=== PATIENT | female | born 1965 | race Caucasian/White ===

== ENCOUNTER 2018-11-16 13:09 | Observation (INO) ==
[2018-11-16] MEDS ORDERED: 0.9 % Sodium Chloride 1,000 ML IVC ONE (13:59)
[2018-11-16] MEDS ORDERED: Isovue-370 500 ML BOTTLE IVP ONE (13:59)
--- NOTE | 2018-11-16 14:02 | Emergency Department Note ---
Disposition Clinical Impression: Hypoxia Pneumonia Qualifiers: Pneumonia type: due to unspecified organism Laterality: bilateral Lung location: lower lobe of lung Qualified Code(s): J18.1 - Lobar pneumonia, unspecified organism Disposition: Admitted As Inpatient Condition: Fair Referrals: Ivana Lyon CNP [Primary Care Provider] - Forms: ED Satisfaction Letter Time of Disposition: 15:53 SOB HPI - General Chief Complaint: ED General Medical Stated Complaint: POSSIBLE INFECTION Time Seen by Provider: 11/16/18 13:50 Source: patient Mode of arrival: private vehicle Limitations: no limitations Nursing Notes Reviewed: Yes Vital Signs Reviewed: Yes - History of Present Illness Pt Subjective Complaint: shortness of breath, cough Onset (ago): week(s) (2 weeks) Context: recent illness (Recently had some ear infection issues and took antibiotics. Initially took amoxicillin and then took Keflex. Completed the Keflex a week and a half ago.) Severity: moderate Consistency/Duration: constant Improves with: nothing Worsens with: exertion, coughing Associated symptoms: Reports: fever, cough, wheezing. Denies: chest pain, sputum production Treatment prior to arrival: other (Saw her PCP in the office. Was sent over to evaluate for possible pneumonia) Cough present: Yes Cough Description: Non-Productive Cough Frequency: Intermittent Sputum production: No - Related Data Home oxygen amount: none Home Medications Medication Instructions Recorded Confirmed Gabapentin [Neurontin] 1,200 mg PO TID 12/05/14 11/16/18 Levothyroxine [Synthroid] 300 mcg PO QAM 12/05/14 11/16/18 Omeprazole [PriLOSEC] 40 mg PO QAM 12/05/14 11/16/18 Aspirin [Ecotrin] 325 mg PO DAILY 09/14/18 11/16/18 Furosemide [Lasix] 40 mg PO DAILY 09/14/18 11/16/18 Spironolactone [Aldactone] 50 mg PO DAILY 09/14/18 11/16/18 Baclofen 20 mg PO Q8H 11/16/18 11/16/18 Oxycodone HCl [Oxycodone HCl ER] 30 mg PO Q4H 11/16/18 11/16/18 Previous Rx's Medication Instructions Recorded Albuterol Neb [Proventil Neb] 2.5 mg IH Q4HR #30 vial.neb 05/24/15 Allergies Allergy/AdvReac Type Severity Reaction Status Date / Time ibuprofen [From Motrin] AdvReac Vomiting Verified 09/14/18 22:43 naproxen [From Naprosyn] AdvReac Vomiting Verified 09/14/18 22:43 tramadol AdvReac Vomiting Verified 09/14/18 22:43 All systems ED: reviewed and negative except as stated. Constitutional: Reports: fever, chills ENT ED: Reports: throat pain, congestion. Denies: ear pain Cardiovascular: Reports: dyspnea on exertion. Denies: chest pain, palpitations Respiratory: Reports: cough, dyspnea, wheezes Gastrointestinal: Denies: abdominal pain, vomiting, diarrhea Neurological: Denies: headache Endocrine: Reports: fatigue Past Medical History - Past Medical History Attestation: Yes The following information was validated with the patient. Source: patient, old records reviewed, nursing notes reviewed Medical history: Reports: arthritis, cancer, CHF, COPD, GI bleed, hepatitis, hyperlipidemia, hypertension, thyroid disease, other Surgical history: Reports: appendectomy, cholecystectomy, hysterectomy, orthopedic, other (Carpal tunnel release, right breast lumpectomy, cardiac janeen terization, cervical spine osteomyelitis), thyroidectomy, other (Breast biopsy, cardiac catheterization at [facility] in approximately 2010 with normal coronaries) Psychiatric history: Reports: anxiety, depression VIDEOTAPE RECORDING ENGINEER history: Reports: no VIDEOTAPE RECORDING ENGINEER history - Social History Smoking Status: Current every day smoker Smokeless Tobacco Status: No Alcohol use: Reports: none Drug use: 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 Absent: scleral icterus, conjunctival injection - ENT ENT exam: normal exam, normal oropharynx, mucous membranes dry, TM's normal bilaterally, normal external ear exam - Neck Neck exam: Present: normal inspection, trachea midline. Absent: meningismus - Chest Chest inspection: Present: normal inspection, symmetric chest wall rise. Absent: tenderness - Respiratory Respiratory exam: Present: other (Course inspiratory sound and expiratory wheezes located in the base posteriorly on the right rest of the lung ernst were clear). Absent: respiratory distress - Cardiovascular Cardiovascular exam: Present: regular rate, normal rhythm, normal heart sounds - Abdominal Exam Abdominal exam: Present: soft, Non-Tender, normal bowel sounds - Extremities Exam Extremities exam: Absent: tenderness, pedal edema, calf tenderness - Neurological Exam Neurological exam: Present: alert, oriented X3, other (Generalized lower extremity weakness but was able to bear weight and help with transfer from chair to gurney) - Psychiatric Psychiatric exam: Present: normal affect, normal mood - Skin Skin exam: Present: warm, dry, other (Minor skin breakdown to the left buttock but no signs of infection or cellulitis) Course Course Narrative: Patient sent over to evaluate for cough and shortness of breath and reports of fever. I hear focal sounds in the right base. Patient has some mobility issues which increase her risk for pneumonia but also increase her risk for PE. Given that she was recently on a couple rounds of antibiotics I think strong consideration needs to be made for other causes like PE. I am going to do a workup on the patient but I am going to proceed directly to CTA of the chest which we will allow me to evaluate for pneumonia as well as PE. Disposition will be based on diagnostic results and reevaluation. - Reevaluation(s) Reevaluation #1: CT of the chest does not reveal any evidence of pulmonary embolism but there is evidence of pneumonitis versus atypical pneumonia. Patient has a low O2 sats at rest even after breathing treatments. She needs to be admitted to the hospital for IV antibiotics and oxygen therapy. He was not sure what she wanted to initially but after a shared decision-making discussion she then did agree to be admitted to the hospital. I bar he spoke with the hospitalist and we will arrange the admission. Time: 15:52 - Consultations Consultation #1: Dr. Mercado, [facility] - I discussed the case with the hospitalist. He is accepting the patient for admission. Time: 15:50 Vital Signs Temperature 98.4 F 11/16/18 13:14 Pulse Rate 96 11/16/18 13:14 Respiratory Rate 18 11/16/18 13:14 Blood Pressure 131/84 11/16/18 13:14 O2 Sat by Pulse Oximetry 87 11/16/18 13:14 Temperature 98.4 F 11/16/18 13:14 Pulse Rate 93 11/16/18 15:32 Respiratory Rate 16 11/16/18 15:32 Blood Pressure 116/66 11/16/18 15:32 O2 Sat by Pulse Oximetry 90 11/16/18 15:32 Oxygen Delivery Oxygen Delivery Room Air Shortness of Breath/Dyspnea - Medical Records Medical records reviewed: Yes I reviewed the patient's medical records. - Lab Data Lab results reviewed: Yes I reviewed the patient's lab results. Result diagrams: 11/16/18 14:14 11/16/18 14:14 Lab Results 11/16/18 11/16/18 11/16/18 Range/Units 14:14 14:14 14:14 WBC 7.8 (4.3-11.1) K/mcL RBC 4.80 (3.82-4.97) M/mcL Hgb 14.4 (11.5-15.4) g/dL Hct 44.2 (35.3-44.9) % MCV 92.1 (83.0-100.0) fL MCH 30.0 (28.0-33.3) pg MCHC 32.6 (31.6-35.5) g/dL RDW 15.8 H (11.5-14.5) % Plt Count 325 (140-400) K/mcL MPV 11.4 (9.4-12.4) fL Immature Gran % 0.1 (0-4) % Seg Neutrophils % 58.1 % Lymphocytes % 32.3 % Monocytes % 6.3 % Eosinophils % 2.8 % Basophils % 0.4 % Neutrophils # 4.5 (1.6-8.9) K/mcL Lymphocytes # 2.5 (0.6-4.6) K/mcL Monocytes # 0.5 (0.0-1.3) K/mcL Eosinophils # 0.2 (0.0-0.6) K/mcL Basophils # 0.0 (0.0-0.2) K/mcL Sodium 138 (136-145) mEq/L Potassium 3.8 (3.5-5.1) mEq/L Chloride 100 (98-107) mEq/L Carbon Dioxide 32 H (23-29) mEq/L BUN 6 (6-20) mg/dL Creatinine 0.83 (0.60-1.20) mg/dL Est GFR ( Amer) > 60 (> 60) Est GFR (Non-Af Amer) > 60 (> 60) BUN/Creatinine Ratio 7 (6-26) Glucose 100 (70-105) mg/dL Calculated Osmolality 284 (280-300) Lactic Acid 1.2 (0.5-2.2) mmol/L Calcium 8.8 (8.6-10.3) mg/dL Troponin I (< 0.04) ng/mL Urine Color (Yellow) Urine Clarity (Clear) Urine pH (5.0-8.0) pH Units Ur Specific [place] (1.010-1.025) Urine Protein (Neg-Trace) mg/dL Urine Glucose (UA) (Normal) mg/dL Urine Ketones (Negative) mg/dL Urine Blood (Negative) Urine Nitrite (Negative) Urine Bilirubin (Negative) Urine Urobilinogen (Normal) mg/dL Ur Leukocyte Esterase (Negative) Urine Microscopic WBC (0-3) per hpf Ur Squamous Epith Cells (None-Few) per lpf Urine Bacteria (None-Few) per hpf Ur Culture Indicated? (NO) 11/16/18 11/16/18 Range/Units 14:14 15:20 WBC (4.3-11.1) K/mcL RBC (3.82-4.97) M/mcL Hgb (11.5-15.4) g/dL Hct (35.3-44.9) % MCV (83.0-100.0) fL MCH (28.0-33.3) pg MCHC (31.6-35.5) g/dL RDW (11.5-14.5) % Plt Count (140-400) K/mcL MPV (9.4-12.4) fL Immature Gran % (0-4) % Seg Neutrophils % % Lymphocytes % % Monocytes % % Eosinophils % % Basophils % % Neutrophils # (1.6-8.9) K/mcL Lymphocytes # (0.6-4.6) K/mcL Monocytes # (0.0-1.3) K/mcL Eosinophils # (0.0-0.6) K/mcL Basophils # (0.0-0.2) K/mcL Sodium (136-145) mEq/L Potassium (3.5-5.1) mEq/L Chloride (98-107) mEq/L Carbon Dioxide (23-29) mEq/L BUN (6-20) mg/dL Creatinine (0.60-1.20) mg/dL Est GFR ( Amer) (> 60) Est GFR (Non-Af Amer) (> 60) BUN/Creatinine Ratio (6-26) Glucose (70-105) mg/dL Calculated Osmolality (280-300) Lactic Acid (0.5-2.2) mmol/L Calcium (8.6-10.3) mg/dL Troponin I < 0.03 (< 0.04) ng/mL Urine Color Yellow (Yellow) Urine Clarity Clear (Clear) Urine pH 6.5 (5.0-8.0) pH Units Ur Specific [place] <= 1.005 L (1.010-1.025) Urine Protein Negative (Neg-Trace) mg/dL Urine Glucose (UA) Normal (Normal) mg/dL Urine Ketones Negative (Negative) mg/dL Urine Blood Negative (Negative) Urine Nitrite Negative (Negative) Urine Bilirubin Negative (Negative) Urine Urobilinogen Normal (Normal) mg/dL Ur Leukocyte Esterase Small H (Negative) Urine Microscopic WBC 5-15 H (0-3) per hpf Ur Squamous Epith Cells Few (None-Few) per lpf Urine Bacteria Moderate H (None-Few) per hpf Ur Culture Indicated? YES A (NO) - Radiology Data Radiology results reviewed: Yes I reviewed the patient's radiology results.
[2018-11-16] MEDS ORDERED: Ipratropium/Albuterol Neb 3 ML IH ONE (14:05)
[2018-11-16 14:24] LABS: Basophils % 0.4 %; Eosinophils # 0.2 K/mcL (0.0-0.6); Eosinophils % 2.8 %; Hematocrit 44.2 % (35.3-44.9); Hemoglobin 14.4 g/dL (11.5-15.4); Immature Granulocytes % 0.1 % (0-4); Lymphocytes # 2.5 K/mcL (0.6-4.6); Lymphocytes % 32.3 %; Mean Corpuscular HGB Conc 32.6 g/dL (31.6-35.5); Mean Corpuscular Volume 92.1 fL (83.0-100.0); Mean Platelet Volume 11.4 fL (9.4-12.4); Monocytes # 0.5 K/mcL (0.0-1.3); Monocytes % 6.3 %; Neutrophils # 4.5 K/mcL (1.6-8.9); Platelet Count 325 K/mcL (140-400); Red Cell Distribution Width 15.8 % (11.5-14.5); Segmented Neutrophils % 58.1 %; White Blood Count 7.8 K/mcL (4.3-11.1)
[2018-11-16 14:37] LABS: BUN/Creatinine Ratio 7 (6-26); Blood Urea Nitrogen 6 mg/dL (6-20); Calcium 8.8 mg/dL (8.6-10.3); Carbon Dioxide 32 mEq/L (23-29); Chloride 100 mEq/L (98-107); Glucose 100 mg/dL (70-105); Osmolality,Calculated 284 (280-300); Potassium 3.8 mEq/L (3.5-5.1); Sodium 138 mEq/L (136-145); eGFR For African Americans > 60 (> 60); eGFR For Non-African Americans > 60 (> 60)
[2018-11-16] MEDS ORDERED: *HR* HYDROmorphone (PF) 1 MG/ML SYRINGE IVP ONE (14:37)
[2018-11-16 15:30] LABS: Bilirubin,Urine Negative (Negative); Blood,Urine Negative (Negative); Clarity,Urine Clear (Clear); Color,Urine Yellow (Yellow); Glucose,Urine (UA) Normal (Normal); Ketones,Urine Negative (Negative); Leukocyte Esterase,Urine Small (Negative); Nitrite,Urine Negative (Negative); PH,Urine 6.5 pH Units (5.0-8.0); Protein,Urine Negative (Neg-Trace); Specific Gravity,Urine <= 1.005 (1.010-1.025); Urobilinogen,Urine Normal (Normal)
[2018-11-16 15:40] LABS: Squamous Epithelial Cell,Urine Few per lpf (None-Few)
[2018-11-16 15:41] LABS: Bacteria,Urine Moderate per hpf (None-Few)
[2018-11-16] MEDS ORDERED: levoFLOXacin 750 MG/150 ML 750 MG/150 ML BAG IVPB ONE (15:59)
[2018-11-16] MEDS ORDERED: Naloxone 0.4 MG/ML INJ IVP PRN (16:39)
[2018-11-16] MEDS: Ipratropium/Albuterol Neb 3 ML IH SCH ×3 (16:50→23:18)
[2018-11-16] MEDS: Baclofen 10 MG TABLET PO SCH (17:16)
[2018-11-16] MEDS: *HR* OxyCODONE Immed Rel 15 MG TABLET PO SCH ×2 (17:16→20:12)
[2018-11-16] MEDS: 0.9 % Sodium Chloride 1,000 ML IVC SCH (18:20)
[2018-11-16] MEDS: Lactobacillus 1 EACH CAP.SPRINK PO SCH (20:12)
[2018-11-16] MEDS: Gabapentin 400 MG CAPSULE PO SCH (20:12)
[2018-11-16] MEDS ORDERED: traZODone 50 MG TABLET PO SCH (21:50)
[2018-11-16] MEDS ORDERED: Melatonin 3 MG TABLET PO SCH (22:00)
[2018-11-16] MEDS ORDERED: traZODone 50 MG TABLET PO PRN (22:58)
[2018-11-16] MEDS ORDERED: Melatonin 3 MG TABLET PO PRN (22:58)
[2018-11-17] MEDS: Baclofen 10 MG TABLET PO SCH ×2 (00:56→09:36)
[2018-11-17] MEDS: *HR* OxyCODONE Immed Rel 15 MG TABLET PO SCH ×3 (00:56→09:36)
[2018-11-17] MEDS: Ipratropium/Albuterol Neb 3 ML IH SCH ×3 (03:22→12:32)
[2018-11-17] MEDS: 0.9 % Sodium Chloride 1,000 ML IVC SCH (04:03)
[2018-11-17 07:31] LABS: Basophils % 0.5 %; Eosinophils # 0.2 K/mcL (0.0-0.6); Eosinophils % 3.6 %; Hematocrit 39.5 % (35.3-44.9); Hemoglobin 12.6 g/dL (11.5-15.4); Immature Granulocytes % 0.2 % (0-4); Lymphocytes # 2.7 K/mcL (0.6-4.6); Lymphocytes % 42.1 %; Mean Corpuscular HGB Conc 31.9 g/dL (31.6-35.5); Mean Corpuscular Hemoglobin 29.6 pg (28.0-33.3); Mean Corpuscular Volume 92.9 fL (83.0-100.0); Mean Platelet Volume 11.7 fL (9.4-12.4); Monocytes # 0.5 K/mcL (0.0-1.3); Monocytes % 8.1 %; Neutrophils # 2.9 K/mcL (1.6-8.9); Platelet Count 272 K/mcL (140-400); Red Blood Count 4.25 M/mcL (3.82-4.97); Segmented Neutrophils % 45.5 %; White Blood Count 6.4 K/mcL (4.3-11.1)
[2018-11-17 07:57] LABS: Alanine Aminotransferase 18 Units/L (7-52); Albumin 3.1 g/dL (3.5-5.7); Alkaline Phosphatase 86 Units/L (34-104); Aspartate Amino Transferase 20 Units/L (13-39); BUN/Creatinine Ratio 7 (6-26); Bilirubin,Total 0.3 mg/dL (0.3-1.0); Blood Urea Nitrogen 5 mg/dL (6-20); Calcium 8.3 mg/dL (8.6-10.3); Carbon Dioxide 33 mEq/L (23-29); Chloride 106 mEq/L (98-107); Globulin 3.2 g/dL (2.4-3.5); Glucose 100 mg/dL (70-105); Osmolality,Calculated 289 (280-300); Potassium 4.1 mEq/L (3.5-5.1); Sodium 141 mEq/L (136-145); Total Protein 6.3 g/dL (6.4-8.9); eGFR For African Americans > 60 (> 60); eGFR For Non-African Americans > 60 (> 60)
[2018-11-17] MEDS ORDERED: Aspirin Enteric Coated 325 MG Tablet PO SCH (09:00)
[2018-11-17] MEDS ORDERED: Spironolactone 25 MG TABLET PO SCH (09:00)
[2018-11-17 09:20] LABS: Thyroid Stimulating Hormone < 0.010 mcIU/mL (0.340-5.600)
[2018-11-17] MEDS: Gabapentin 400 MG CAPSULE PO SCH (09:36)
[2018-11-17] MEDS: Lactobacillus 1 EACH CAP.SPRINK PO SCH (09:36)
--- NOTE | 2018-11-17 11:51 | Internal Med History&Physical ---
Date of Encounter: 11/17/18 Time of Encounter: 11:15 Assessment and Plan (1) Hypoxia Current visit: Yes Status: Acute Now resolved. Room air oximetry saturation shows readings 91-95% at present time. Chest CT did not show convincing evidence of infection. WBC remains normal without left shift. Pro-calcitonin level pending. No additional antibiotics will be given at this time. (2) Hypothyroid Current visit: No Status: Chronic TSH suppressed at < 0.010. Synthroid dose will be decreased from 300 g daily to 150 g daily. Qualifiers: Hypothyroidism type: postoperative Qualified Code(s): E89.0 - Postprocedural hypothyroidism Internal Medicine - H&P: HPI Chief complaint: Hypoxemia Admitted From: Emergency Dept Plans for Post Hospital Care: Home History of present illness: Ms. Knight is a 53 year old female who was sent from her PCP office to emergency room after she was found to have hypoxemia and slight dyspnea. Level of hypoxemia was not documented in the ER report. She had previously been on amoxicillin followed by [facility] ending approximately 10 days ago for ear infection. She was evaluated in emergency room and admitted to [facility] floor for ongoing care needs. She states she feels improved now and wishes be discharged home. Respiratory history is significant for having smoked since age 16 up to 2 packs per day. She denies known chronic lung disease and does not use home oxygen. 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 RIGHT BREAST LUMPECTOMY. HEART CATHERIZATION. BACK SURGERY - Social History Smoking Status: Current every day smoker Smokeless Tobacco Status: No Alcohol use: none Drug use: opiates - Family History Mother Living Status: Still Living Hx Family Cancer: Yes (Anal cancer.) Internal Medicine - H&P: Meds Gabapentin [Neurontin] 1,200 mg PO TID 12/05/14 [History] Levothyroxine [Synthroid] 300 mcg PO QAM 12/05/14 [History] Omeprazole [PriLOSEC] 40 mg PO QAM 12/05/14 [History] Albuterol Neb [Proventil Neb] 2.5 mg IH Q4HR #30 vial.neb 05/24/15 [Rx] Aspirin [Ecotrin] 325 mg PO DAILY 09/14/18 [History] Furosemide [Lasix] 40 mg PO DAILY 09/14/18 [History] Spironolactone [Aldactone] 50 mg PO DAILY 09/14/18 [History] Baclofen 20 mg PO Q8H 11/16/18 [History] Melatonin 6 mg PO HS 11/16/18 [History] Oxycodone HCl [Oxycodone HCl ER] 30 mg PO Q4H 11/16/18 [History] Trazodone HCl 150 mg PO HS 11/16/18 [History] Allergy/AdvReac Type Severity Reaction Status Date / Time ibuprofen [From Motrin] AdvReac Vomiting Verified 09/14/18 22:43 naproxen [From Naprosyn] AdvReac Vomiting Verified 09/14/18 22:43 tramadol AdvReac Vomiting Verified 09/14/18 22:43 All Systems PM: A 10-system review of systems was performed and is negative for pertinent findings except as documented above in the HPI. Review of systems: Review of systems from her November 2015 [facility] hospitalization were reviewed and revised as below. Gen.: Her weight has minimally changed approximately 95 kg since 2016 hospitalization. Cardiovascular: She has history of hypertension. She claims she has a diagnosis of CHF but echocardiogram done September 2013 showed LVEF of 55-60% with no diastolic dysfunction and no significant valvular abnormality. She claims she had a negative heart catheterization approximately 2010 at [facility]. She denies DVT or pulmonary embolus. Respiratory: As per history of present illness GI: She has had remote cholecystectomy. He was diagnosed with hepatitis C during her November 2015 [facility] hospitalization. She denies other disorders of her liver or exocrine pancreas. : She has had indwelling Hare catheter since May 2017 due to cervical spine involvement from abscess (?) requiring surgical drainage and treatment for cervical osteomyelitis. 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 She states she has regained significant strength in her arms and legs and is now able to take a few steps using a walker independently. She states she had headaches in the past and saw a neurologist. She was found to have "brain lesions" but does not know details. She denies a diagnosis of MS. She states she follows approximately every 3 months with a neurologist. She denies large distribution strokes or seizures Endocrine: She was diagnosed with thyroid cancer 2004 and underwent total thyroidectomy. She is on replacement levothyroxine. She has hyperlipidemia but denies diabetes. Hematology/oncology: She had thyroid cancer as per above. She denies other internal malignancies or anemia Psychiatric: She has anxiety but no significant depression or other mental health issues Musk skeletal: She has DJD but denies gout or other bone joint or muscle disorders. - Constitutional Vitals: Temp Pulse Resp BP Pulse Ox 98.5 F 74 15 89/55 91 11/17/18 11:19 11/17/18 11:19 11/17/18 11:19 11/17/18 11:19 11/17/18 11:19 Exam: Gen.: She is well-developed overweight female lying in bed who appears in no severe distress at present time. HEENT: Head is atraumatic and normocephalic. Eyes: EOMI. There is no scleral icterus. Mouth: Mucosa is moist. Neck: Supple and nontender. There is no thyromegaly or adenopathy noted. Heart: Regular without murmurs gallops or ectopics Lungs: No wheezes or crackles are heard. Abdomen: Soft and nontender. No masses or guarding are noted. Extremities: There is no cyanosis edema or clubbing noted. Dorsalis pedis and posterior tibial pulses are trace to 1+ palpable bilaterally. Neurologic: Mental status: She is talkative and a good historian. Cranial nerves: Smile is symmetric. Forehead wrinkles bilaterally. Tongue protrudes midline. EOMI. Motor: There is no pronator drift. Cerebellar: Finger to nose is intact bilaterally. Skin: Warm and dry Internal Med - H&P Results - Labs CBC & Chem 7: 11/17/18 06:54 11/17/18 06:54 Labs: Short CBC 11/16/18 11/17/18 Range/Units 14:14 06:54 WBC 7.8 6.4 (4.3-11.1) K/mcL Hgb 14.4 12.6 D (11.5-15.4) g/dL Hct 44.2 39.5 (35.3-44.9) % Plt Count 325 272 (140-400) K/mcL Neutrophils # 4.5 2.9 (1.6-8.9) K/mcL BMP 11/16/18 11/17/18 14:14 06:54 Sodium 138 141 Potassium 3.8 4.1 Chloride 100 106 Carbon Dioxide 32 H 33 H BUN 6 5 L Creatinine 0.83 0.75 Glucose 100 100 Calcium 8.8 8.3 L Cardiac Enzymes 11/16/18 Range/Units 14:14 Troponin I < 0.03 (< 0.04) ng/mL Liver Function 11/17/18 Range/Units 06:54 Total Bilirubin 0.3 (0.3-1.0) mg/dL AST 20 (13-39) Units/L ALT 18 (7-52) Units/L Alkaline Phosphatase 86 (34-104) Units/L Albumin 3.1 L (3.5-5.7) g/dL Urine 11/16/18 Range/Units 15:20 Urine Color Yellow (Yellow) Urine Clarity Clear (Clear) Urine pH 6.5 (5.0-8.0) pH Units Ur Specific [place] <= 1.005 L (1.010-1.025) Urine Protein Negative (Neg-Trace) mg/dL Urine Glucose (UA) Normal (Normal) mg/dL - Impressions ITS Impressions Chest CTA 11/16/18 15:07 IMPRESSION: No evidence of pulmonary embolism. Mild patchy ground-glass attenuation in the bilateral lungs, may be related to pneumonitis versus underdistention. D/ / Héctor Allen MD / Héctor Allen MD Interpreting Provider: Héctor Allen MD
--- NOTE | 2018-11-17 12:09 | Discharge Summary ---
Orders not resulted at time of discharge: Pending orders 11/16/18 14:20 Culture,Blood [BC] Stat 11/16/18 15:20 Culture,Urine [RM] Stat Date of Encounter: 11/17/18 Time of Encounter: 11:15 - Discharge Diagnosis (1) Hypoxia Priority: Primary Status: Acute (2) Hypothyroid Priority: Secondary Status: Chronic Qualifiers: Hypothyroidism type: postoperative Qualified Code(s): E89.0 - Postprocedural hypothyroidism Hospital course: Ms. Knight is a 53 year old female who was sent from her PCP office to emergency room after she was found to have hypoxemia and slight dyspnea. Level of hypoxemia was not documented in the ER report. She had previously been on amoxicillin followed by [facility] approximately 10 days ago for ear infection. She was evaluated in emergency room and admitted to [facility] for ongoing care needs. Initial orders were written by the emergency room physician. I saw her on November 17 performed a history physical and discharge. She was given a dose of Levaquin in emergency room. When I saw her I was not convinced she had signi ficant pneumonia requiring antibiotics. Pro calcitonin level was ordered with results pending at time of discharge. Her PCP can follow up and determine if additional antibiotics are needed. She remained afebrile during her hospital stay. Room air oximetry showed saturations of 91-95% during my examination. She felt back to her baseline and wished to be discharged which I felt was reasonable. TSH returned at decreased at < 0.010. Synthroid dose will be decreased from 300 g daily to a dose of 150 g daily. Her PCP can monitor and adjust dose as needed. She will follow with her PCP Ivana Lyon CNP within 1 week. - Time Spent with Patient Total time spent providing and/or coordinating discharge services: - Discharge Medications Prescriptions: New Levothyroxine [Synthroid] 150 mcg PO 0630 tablet Continued Omeprazole [PriLOSEC] 40 mg PO QAM Gabapentin [Neurontin] 1,200 mg PO TID Albuterol Neb [Proventil Neb] 2.5 mg IH Q4HR #30 vial.neb Spironolactone [Aldactone] 50 mg PO DAILY Furosemide [Lasix] 40 mg PO DAILY Aspirin [Ecotrin] 325 mg PO DAILY Baclofen 20 mg PO Q8H Oxycodone HCl [Oxycodone HCl ER] 30 mg PO Q4H Trazodone HCl 150 mg PO HS Melatonin 6 mg PO HS Discontinued Levothyroxine [Synthroid] 300 mcg PO QAM Home Medications: Gabapentin [Neurontin] 1,200 mg PO TID 12/05/14 [History] Omeprazole [PriLOSEC] 40 mg PO QAM 12/05/14 [History] Albuterol Neb [Proventil Neb] 2.5 mg IH Q4HR #30 vial.neb 05/24/15 [Rx] Aspirin [Ecotrin] 325 mg PO DAILY 09/14/18 [History] Furosemide [Lasix] 40 mg PO DAILY 09/14/18 [History] Spironolactone [Aldactone] 50 mg PO DAILY 09/14/18 [History] Baclofen 20 mg PO Q8H 11/16/18 [History] Melatonin 6 mg PO HS 11/16/18 [History] Oxycodone HCl [Oxycodone HCl ER] 30 mg PO Q4H 11/16/18 [History] Trazodone HCl 150 mg PO HS 11/16/18 [History] Levothyroxine [Synthroid] 150 mcg PO 0630 tablet 11/17/18 [Rx] Allergies/Adverse Reactions: Allergy/AdvReac Type Severity Reaction Status Date / Time ibuprofen [From Motrin] AdvReac Vomiting Verified 09/14/18 22:43 naproxen [From Naprosyn] AdvReac Vomiting Verified 09/14/18 22:43 tramadol AdvReac Vomiting Verified 09/14/18 22:43 Date of admission: 11/16/18 16:05 Primary care physician: Ivana Lyon - Constitutional Vitals: Temp Pulse Resp BP Pulse Ox 98.5 F 74 15 89/55 91 11/17/18 11:19 18 11:19 11/17/18 11:19 11/17/18 11:19 11/17/18 11:19 - Patient Status Disposition: Home Health Service Condition: Fair - Discharge Instructions Follow Up With: Ivana Lyon, NELDA [Primary Care Provider] - 1 week - Diet and Activity Activity: resume usual activities as tolerated Diet: advance to your usual diet
[2018-11-17 12:13] VITALS: BP 92/73
--- NOTE | 2018-11-17 12:16 | Physician Discharge Referral ---
Home Health/Hosp Referral Info Transfer to: Home Health Attending Provider: Rogelio Provider in Charge Post Discharge: PCP (Ivana Lyon CNP) - Diagnosis (1) Hypoxia Priority: Primary Status: Resolved (2) Hypothyroid Priority: Secondary Status: Chronic - Respiratory Orders Smoking Cessation: Smoking cessation has been advised. For more information, call the [place] Tobacco Quit Line at 8-448-IOQB-NOW. - Diet/Nutrition Diet/Nutrition Orders: Regular - Activity Activity Orders: Walker - Services Needed Following services are medically necessary services: Nursing, Home Health Aide, Physical Therapy, Occupational Therapy - Transfer Medications Home Medications: Gabapentin [Neurontin] 1,200 mg PO TID 12/05/14 [History] Omeprazole [PriLOSEC] 40 mg PO QAM 12/05/14 [History] Albuterol Neb [Proventil Neb] 2.5 mg IH Q4HR #30 vial.neb 05/24/15 [Rx] Aspirin [Ecotrin] 325 mg PO DAILY 09/14/18 [History] Furosemide [Lasix] 40 mg PO DAILY 09/14/18 [History] Spironolactone [Aldactone] 50 mg PO DAILY 09/14/18 [History] Baclofen 20 mg PO Q8H 11/16/18 [History] Melatonin 6 mg PO HS 11/16/18 [History] Oxycodone HCl [Oxycodone HCl ER] 30 mg PO Q4H 11/16/18 [History] Trazodone HCl 150 mg PO HS 11/16/18 [History] Levothyroxine [Synthroid] 150 mcg PO 0630 tablet 11/17/18 [Rx] Allergies/Adverse Reactions: Allergy/AdvReac Type Severity Reaction Status Date / Time ibuprofen [From Motrin] AdvReac Vomiting Verified 09/14/18 22:43 naproxen [From Naprosyn] AdvReac Vomiting Verified 09/14/18 22:43 tramadol AdvReac Vomiting Verified 09/14/18 22:43 Certification: Further, I certify that my clinical findings support that this patient is homebound (i.e. absences from home require considerable and taxing effort and are for medical reasons or episcopal services or infrequently or short duration when for other reasons) because: Homebound Reason: Leaving home requires considerable and taxing effort due to condition (Impaired walking ability with quadriparesis) Attestation: My signature below is to certify that this patient is under my care and that I, or nurse practitioner, or a physician's supply assistant working with me, has a [id number] encounter with this patient.
[2018-11-17] MEDS ORDERED: levoFLOXacin 750 MG/150 ML 750 MG/150 ML BAG IVPB SCH (16:00)
== END 2018-11-17 13:30 | disposition home health service (06) ==
LOC: INPPIK 13:09 → EMEROOPIK 13:09 → INPPIK 16:29
PROVIDERS: ADMIT Internal Medicine; ATTEND Internal Medicine